=== PATIENT | female | born 1995 | race Asian ===

== ENCOUNTER 2019-04-28 19:21 | Emergency (ER) | payer SELFPAY ==
[~2019-04-28] VITALS: Ht 167.6 cm; Wt 61.2 kg
--- NOTE | 2019-04-28 19:37 | NUR ---
ED Nurse Note: Walk-in patient with complaints of low back pain, patient suspects UTI, is providing a urine sample at this time.
[2019-04-28 19:38] VITALS: BP 117/76
--- NOTE | 2019-04-28 19:40 | NUR ---
ED Nurse Note: Urine sample sent down to lab.
[2019-04-28] MEDS ORDERED: Isovue-300 100ml vial INJ PRN (20:00)
[2019-04-28 20:02] LABS: APPEARANCE,URINE CLEAR; BILIRUBIN, URINE 2+ (NEGATIVE); COLOR,URINE BROWN; GLUCOSE, URINE (UA) NEGATIVE (NEGATIVE); KETONES,URINE NEGATIVE (NEGATIVE); LEUKOCYTE ESTERASE ,URINE 1+ (NEGATIVE); NITRITE,URINE POSITIVE (NEGATIVE); PH,URINE 7 (4.5-8.0); PROTEIN,URINE NEGATIVE (NEGATIVE); UROBILINOGEN,URINE 8 MG/DL (0.0-1.0)
[2019-04-28 20:38] LABS: BASOPHILS % (AUTO) 1.2 % (0.0-2.0); HEMATOCRIT 37.9 % (37.0-47.0); HEMOGLOBIN 13.1 G/DL (12.0-16.0); MEAN CORPUSCULAR VOLUME 89 FL (80-99); NEUTROPHILS % (AUTO) 54.8 % (45.0-75.0); PLATELET COUNT 229 K/UL (150-450); RED BLOOD COUNT 4.28 M/UL (4.20-5.40); RED CELL DISTRIBUTION WIDTH 10.6 % (11.6-14.8); WHITE BLOOD COUNT 6.6 K/UL (4.8-10.8)
[2019-04-28 20:40] LABS: ANION GAP 7 mmol/L (5-15); BLOOD UREA NITROGEN 13 mg/dL (7-18); CARBON DIOXIDE 26 MMOL/L (21-32); CHLORIDE 107 MMOL/L (98-107); CREATININE 1.2 MG/DL (0.55-1.30); POTASSIUM 3.8 MMOL/L (3.5-5.1); SODIUM 140 MMOL/L (136-145)
[2019-04-28 20:44] LABS: ALANINE AMINOTRANSFERASE 27 U/L (12-78); ALBUMIN 3.8 G/DL (3.4-5.0); ALBUMIN/GLOBULIN RATIO 1.2 (1.0-2.7); ALKALINE PHOSPHATASE 52 U/L (46-116); ASPARTATE AMINO TRANSFERASE 18 U/L (15-37); BILIRUBIN,TOTAL 0.4 MG/DL (0.2-1.0)
--- NOTE | 2019-04-28 21:06 | Diagnostic Imaging Report ---
Indication: Abdominal pain Technique: Continuous helical transaxial imaging of the abdomen and pelvis was obtained from the lung bases to the pubic symphysis during intravenous contrast administration. Coronal 2-D reformats were also obtained. Study obtained in a Siemens sensation [address] Automatic Exposure Control was utilized. Total Dose length Product (DLP): 489.[address] Dose Index Volume (CTDIvol): 9.37 mGy Comparison: None Findings: The lung bases are clear. The liver and spleen, pancreas, gallbladder and kidneys, adrenal glands are unremarkable. Stomach is nondistended and not evaluated well. Oral contrast was not given. Bowel gas pattern appears nonobstructive. Uterus noted. Trace free fluid demonstrated. Appendix is normal. IMPRESSION: No acute findings. [facility] has communicated the preliminary results to the Emergency Department. Their findings are largely concordant with this report. The CT scanner at [facility] is accredited by the [employer] and the scans are performed using dose optimization techniques as appropriate to a performed exam including Automatic Exposure control.
[2019-04-28] MEDS ORDERED: ZOFRAN4 M1 ORAL (21:16)
[2019-04-28] MEDS ORDERED: BACTRIM DS TAB1 EAC1 ORAL (21:16)
--- NOTE | 2019-04-28 21:16 | Emergency Room Report ---
History of Present Illness General Chief Complaint: Female Urogenital Problems Source: Patient Present Illness HPI 23-year-old female with history of frequent UTI here complaining of recurrent UTI and being on Bactrim, as well as 2 days of right-sided flank pain without radiation to the pubic area. Complains of nausea however denies vomiting, diarrhea, constipation, blood in her stool. Also complains of having the low back pain with a urinary tract infection for several weeks now as she keeps getting frequent urinary tract infections. Has not taken medication for symptom relief. Denies chest pain, shortness of breath, palpitation, and other associated symptoms. Denies fever and chills. Patient reports that she is sexually active using condoms denies vaginal discharge and last menstrual period was 2 weeks ago and regular. Allergies: Coded Allergies: DEXCHLORPHENIRAMINE (Verified Allergy, Unknown, 04/28/19) Patient History Past Medical History: see triage record Past Surgical History: unable to obtain Pertinent Family History: none Last Menstrual Period: 04/09/19 Now: No Immunizations: UTD Reviewed Nursing Documentation: PMH: Agreed; PSxH: Agreed Nursing Documentation-PMH Hx Asthma: Yes Review of Systems All Other Systems: negative except mentioned in HPI Physical Exam Vital Signs Date Time Temp Pulse Resp B/P (MAP) Pulse Ox O2 Delivery O2 Flow Rate FiO2 04/28/19 19:25 98.2 68 18 117/76 (90) 95 Room Air Sp02 EP Interpretation: reviewed, normal General Appearance: no apparent distress, alert, GCS 15, non-toxic Head: normocephalic, atraumatic Eyes: bilateral eye normal inspection, bilateral eye PERRL ENT: hearing grossly normal, normal pharynx, no angioedema, normal voice Neck: full range of motion, supple/symm/no masses Respiratory: chest non-tender, lungs clear, normal breath sounds, no wheezing, speaking full sentences Cardiovascular #1: regular rate, rhythm, no edema, no murmur, normal capillary refill Gastrointestinal: normal inspection, normal bowel sounds, non tender, soft, no mass, no bruit Genitourinary: no CVA tenderness Musculoskeletal: back normal, gait/station normal, normal range of motion, non- tender, calf tenderness Neurologic: alert, oriented x3, responsive, motor strength/tone normal, sensory intact, speech normal Psychiatric: judgement/insight normal, memory normal, mood/affect normal, no suicidal/homicidal ideation Skin: no rash Lymphatic: normal inspection, no adenopathy Medical Decision Making PA Attestation All my diagnosis and treatment plans were reviewed ad discussed with my supervising physician Dr. Ceballos Diagnostic Impression: Primary Impression: UTI (urinary tract infection) ER Course 23-year-old female with history of frequent UTI here complaining of recurrent UTI and being on Bactrim, as well as 2 days of right-sided flank pain without radiation to the pubic area. Complains of nausea however denies vomiting, diarrhea, constipation, blood in her stool. Also complains of having the low back pain with a urinary tract infection for several weeks now as she keeps getting frequent urinary tract infections. Has not taken medication for symptom relief. Denies chest pain, shortness of breath, palpitation, and other associated symptoms. Denies fever and chills. Patient reports that she is sexually active using condoms denies vaginal discharge and last menstrual period was 2 weeks ago and regular. Ddx considered but are not limited to: UTI, pyelonephritis, urinary incontinence , prolapsed bladder Vital signs: are WNL, pt. is afebrile H&PE are most consistent with: Uncomplicated UTI ORDERS: UA, urine test, CBC, CMP, Bactrim DS, Zofran ED INTERVENTIONS: None required at this time. DISCHARGE: At this time pt. is stable for d/c to home. Will provide printed patient care instructions, and any necessary prescriptions. Care plan and follow up instructions have been discussed with the patient prior to discharge. Patient has been on Bactrim DS for 5 additional days as her primary care only put her on for 3 days. Follow-up with a primary care provider referral to urologist for frequent urinary tract infection. Take medication as directed if worsening symptoms return to the emergency room CT/MRI/US Diagnostic Results CT/MRI/US Diagnostic Results : Imaging Test Ordered: Abdominal CT with contrast Impression Within normal limits Last Vital Signs Date Time Temp Pulse Resp B/P (MAP) Pulse Ox O2 Delivery O2 Flow Rate FiO2 04/28/19 19:38 98.2 86 18 117/76 95 Room Air Disposition: HOME, SELF-CARE Condition: Stable Patient Instructions: Urinary Tract Infection Additional Instructions: Follow-up with primary care provider if worsening symptoms return to the emergency room take medication as directed Rose Freire Apr 28, 2019 21:15
--- NOTE | 2019-04-28 21:24 | NUR ---
ED Nurse Note: Patient cleared for discharge, verbalized understanding of discharge instructions. Patient IV removed, ID band removed. patient departed with all belongings.
[2019-04-28 21:25] VITALS: BP 117/76
== END 2019-04-28 21:30 | disposition home or self-care (01) ==
LOC: EMR 21:30
DX: N39.0 Urinary tract infection, site not specified (principal); J45.909 Unspecified asthma, uncomplicated
CPT/HCPCS: 36415; 74177; 80053; 81001; 81025; 85025; 99284; Q9967